=== PATIENT | female | born 1955 | race African-American/Black ===

== ENCOUNTER 2023-07-11 00:20 | Emergency (ER) | payer BC, MEDICAID ==
[~2023-07-11] VITALS: Ht 167.6 cm; Wt 82.0 kg
[2023-07-11 00:51] VITALS: BP 146/98; RESP 19; TEMP 99.2; O2SAT 98
[2023-07-11 00:52] VITALS: PULSE 103
[2023-07-11] MEDS ORDERED: IBUP-2029 MT (06:46)
[2023-07-11] MEDS ORDERED: DOXY-456 MT (06:46)
== END 2023-07-11 07:27 | disposition home or self-care (01) ==
LOC: ER 00:20
DX: L03.115 Cellulitis of right lower limb (principal)
CPT/HCPCS: 73630; 99283

== ENCOUNTER 2024-09-16 02:11 | Emergency (ER) | payer BC, MEDICAID ==
[~2024-09-16] VITALS: Ht 167.6 cm; Wt 68.0 kg
[~2024-09-16 02:11] MED LIST: DOXY-461 MT; IBUP-2029 MT
[2024-09-16 02:20] VITALS: O2SAT 100
[2024-09-16] MEDS: PIPERACILLIN/TAZO 3.375G/50ML 50 ML IV ONE (03:02)
[2024-09-16] MEDS: VANCOMYCIN 1G PREMIX 200 ML IV ONE (03:19)
[2024-09-16] MEDS: MORPHINE SULFATE 4 MG/ML INJ (FOR IV/IM USE) ONE (03:41)
[2024-09-16] MEDS ORDERED: PIPERACILLIN/TAZO 3.375G/50ML IV NR (04:30)
[2024-09-16] MEDS ORDERED: VANCOMYCIN 1G PREMIX 200 ML IV NR (04:30)
[2024-09-16 05:11] LABS: BASOPHILS % 0.8 % (0.0-2.0); DIFFERENTIAL COMMENT 0; EOSINOPHILS % 0.2 % (0.0-5.0); HEMATOCRIT. 32.5 % (36.0-48.0); HEMOGLOBIN. 10.1 g/dL (12.0-16.0); LYMPHOCYTES % 35.7 % (20.0-50.0); MEAN CORPUSCULAR HEMOGLOBIN 24.9 pg (28.0-32.0); MEAN CORPUSCULAR HGB CONC 31.1 g/dL (31.0-37.0); MEAN PLATELET VOLUME 8.1 fl (7.4-10.4); MONOCYTES % 10.3 % (2.0-8.0); PLATELET 259 x1000/uL (130-400); RED BLOOD CELL COUNT 4.07 mill/uL (4.2-5.4); RED CELL DISTRIBUTION WIDTH 14.3 % (11.6-14.6); WHITE BLOOD COUNT 5.5 x1000/uL (4.5-11.0)
[2024-09-16 05:44] LABS: CHLORIDE 107 mEq/L (98-107); POTASSIUM 3.2 mEq/L (3.5-5.1); SODIUM 140 mEq/L (136-145)
[2024-09-16 05:45] LABS: CARBON DIOXIDE 26 mEq/L (21-32); GLUCOSE 109 mg/dL (70-105)
[2024-09-16 05:46] LABS: CALCIUM 9.3 mg/dL (8.7-10.4); PROTEIN TOTAL 2.7 g/dL (6.0-8.3)
[2024-09-16 05:47] LABS: ALANINE AMINOTRANSFERASE 15 IU/L (10-49); ALBUMIN 3.7 g/dL (3.2-4.8); ASPARTATE AMINOTRANSFERASE 21 IU/L (<34)
[2024-09-16 05:48] LABS: CREATINE KINASE 157 IU/L (34-145); TROPONIN I HIGH SENSITIVITY 5 ng/L (3.0-34)
[2024-09-16 05:57] LABS: BILIRUBIN TOTAL 0.4 mg/dL (0.1-1.0); PHOSPHORUS 2.7 mg/dL (2.5-4.9)
[2024-09-16 05:59] LABS: CREATININE 0.6 mg/dL (0.6-1.0); UREA NITROGEN BLOOD 15 mg/dL (9-23)
[2024-09-16] MEDS: POTASSIUM CHLORIDE 20MEQ/PACKET PO ONE (06:40)
[2024-09-16 06:47] LABS: PARTIAL THROMBOPLASTIN TIME 32.1 sec (23.4-31.0); PROTHROMBIN TIME 10.9 sec (9.6-11.0)
[2024-09-16] MEDS ORDERED: HYDROCODONE/ACETAMINOPHEN 5/325MG TABLET PO PRN (07:30)
[2024-09-16] MEDS ORDERED: CLONIDINE 0.1MG TABLET PO PRN (07:30)
[2024-09-16] MEDS ORDERED: DEXTROSE 50% WATER 50ML SYRINGE IV PRN (07:30)
[2024-09-16] MEDS ORDERED: IPRATROPIUM/ALBUTEROL 0.5-3(2.5)MG/3ML NEB NEB PRN (07:30)
[2024-09-16] MEDS ORDERED: MORPHINE SULFATE 2 MG/ML INJ (NOT FOR IM USE) IV PRN (07:30)
[2024-09-16] MEDS: MORPHINE SULFATE 4 MG/ML INJ (FOR IV/IM USE) IV NR (07:50)
[2024-09-16] MEDS ORDERED: NALOXONE HCL 0.4MG/ML VIAL IV PRN (08:15)
[2024-09-16] MEDS: INSULIN LISPRO 100 UNITS/ML SUBCUT SCH (08:20)
[2024-09-16] MEDS: BLOOD SUGAR DIAGNOSTIC STRIP TEST SCH (09:02)
[2024-09-16 09:09] LABS: CLARITY URINE CLEAR (CLEAR); COLOR URINE YELLOW (YELLOW); GLUCOSE URINE NEGATIVE (NEGATIVE); KETONES URINE NEGATIVE (NEGATIVE); LEUKOCYTE ESTERASE URINE 3+ (NEGATIVE); NITRITE URINE POSITIVE (NEGATIVE); OCCULT BLOOD URINE TRACE (NEGATIVE); PH URINE 6.5 (4.5-8.0); PROTEIN URINE NEGATIVE (NEGATIVE); SPECIFIC GRAVITY URINE 1.011 (1.005-1.030); UROBILINOGEN URINE 0.2 E.U./dL (0.2-1.0)
[2024-09-16] MEDS: PANTOPRAZOLE SODIUM 40 MG/VIAL IV SCH (09:29)
[2024-09-16] MEDS: ENOXAPARIN 40MG/0.4ML SYR SUBCUT SCH (09:29)
[2024-09-16 09:40] LABS: *AMPHETAMINES SCREEN URINE NEGATIVE (NEGATIVE); *BARBITURATES SCREEN URINE NEGATIVE (NEGATIVE); *BENZODIAZEPINES SCREEN URINE NEGATIVE (NEGATIVE); *COCAINE SCREEN URINE PRESUMPTIVE POSITIVE (NEGATIVE); CANNABINOID URINE SCREEN NEGATIVE (NEGATIVE); ECSTASY MDMA SCREEN URINE NEGATIVE (NEGATIVE); METHADONE URINE SCREEN NEGATIVE (NEGATIVE); OPIATES URINE SCREEN PRESUMPTIVE POSITIVE (NEGATIVE); PHENCYCLIDINE URINE SCREEN NEGATIVE (NEGATIVE)
[2024-09-16 09:41] LABS: SQUAMOUS EPITHELIAL CELL URINE FEW /lpf (RARE/1+)
[2024-09-16 09:42] LABS: RBC URINE 0-2 /hpf (0-2); WBC URINE 0-2 /hpf (0-2)
[2024-09-16 09:43] LABS: BACTERIA URINE TRACE
[2024-09-16 10:03] VITALS: BP 143/43; PULSE 102; RESP 20; TEMP 37.4; O2SAT 94
[2024-09-16] MEDS ORDERED: PIPERACILLIN/TAZO 3.375G/50ML 50 ML IV SCH (14:00)
[2024-09-16] MEDS ORDERED: VANCOMYCIN 1GM/200ML PMX (BAXTER) IV SCH (18:00)
== END 2024-09-16 10:11 | disposition short-term general hospital (02) ==
LOC: ER 02:11
DX: E11.621 Type 2 diabetes mellitus with foot ulcer (principal); N39.0 Urinary tract infection, site not specified; Z00.00 Encounter for general adult medical examination without abnormal findings
CPT/HCPCS: 99285; 93970; 96374; 71045; 96375; 80053; 80305; 82550; 82962; 83605; 84100; 85025; 85610; 85651; 85730; 87040; 84484; 84145; 73630; 96372; 81003; 36415; J1650; J2470; J2543; J3370; J2270